=== PATIENT | female | born 1955 | race Caucasian/White ===

== ENCOUNTER → 2020-10-01 | Day surgery (SDC) | payer BC ==
[2020-09-26 15:33] LABS: BASOPHILS % 0.2 % (0.0-1.0); EOSINOPHILS # (AUTO) 0.1 (0.0-0.4); EOSINOPHILS % 0.9 % (0.0-6.0); HEMATOCRIT 38.8 % (34.2-44.1); HEMOGLOBIN 12.3 g/dL (12.0-16.0); LYMPHOCYTES # (AUTO) 3.3 (1.0-3.2); LYMPHOCYTES % 36.3 % (18.0-39.1); MEAN CORPUSCULAR HEMOGLOBIN 30.6 pg (28-32); MEAN CORPUSCULAR HGB CONC 31.7 g/dL (31-35); MEAN CORPUSCULAR VOLUME 96.5 fL (81-99); MONOCYTES # (AUTO) 0.6 (0.2-0.8); MONOCYTES % 6.5 % (4.4-11.3); NEUTROPHILS # (AUTO) 5.1 (2.1-6.9); NEUTROPHILS % 55.8 % (38.7-80.0); PLATELET COUNT 311 x10e3/uL (140-360); RED BLOOD COUNT 4.02 x10e6/uL (3.6-5.1); RED CELL DISTRIBUTION WIDTH 13.2 % (11.7-14.4)
[2020-09-26 15:43] LABS: INR 0.91; PROTHROMBIN TIME 12.4 seconds (11.9-14.5)
[2020-09-26 15:51] LABS: ALBUMIN 4.1 g/dL (3.5-5.0); ALBUMIN/GLOBULIN RATIO 1.3 (0.8-2.0); ANION GAP 15.6 mmol/L (8-16); CALCIUM 9.9 mg/dL (8.4-10.2); CHOL/HDL RATIO 4.3 (3.0-3.6); CREATININE, SERUM 1.05 mg/dL (0.57-1.11); POTASSIUM 4.6 mmol/L (3.5-5.1)
[~2020-10-01] VITALS: Ht 167.6 cm; Wt 77.6 kg
[2020-10-01] VITALS (26 sets, daily range): BP systolic 99–151; BP diastolic 49–79
[~2020-10-01] MED LIST: ASPIRIN 325 MG TAB ONE; CLOPIDOGREL BISULFATE 75 MG TAB ONE; FENTANYL CITRATE/PF 100MCG/2 ML INJ ONE; HEPARIN SOD (PORCINE) 1000 UNIT/ML 30ML ONE; HEPARIN SOD/SOD CHLORIDE 2,000 ML ONE; IOPAMIDOL 370 MG/ML 200 ML INFUS..BTL INJ ONE; LEXAPRO5 MG PO; LIDOCAINE HCL 2% LOCAL 20 ML VIAL ONE; LISINOPRIL10 MG PO; LOTEPREDNOL OP; MIDAZOLAM HCL 2 MG/2 ML VIAL ONE; NITROGLYCERIN/D5W 200 MCG/ML 250 ML ONE; RESTASIS1 EACH OP; SODIUM CHLORIDE 0.9% 1000ML 1,000 ML ONE; TIROSINT88 MCG PO; VERAPAMIL HCL 2.5 MG/ML 2 ML VIAL ONE; WELLNESS FORMULA PO; [UNRECOGNIZED DRUG - OTHER] PO
== END | disposition home or self-care (01) ==
LOC: CATH LAB 07:35
PROVIDERS: ATTEND Internal Medicine
DX: I25.118 Atherosclerotic heart disease of native coronary artery with other forms of angina pectoris (principal); R94.39 Abnormal result of other cardiovascular function study; I10 Essential (primary) hypertension; Z88.2 Allergy status to sulfonamides; Z01.812 Encounter for preprocedural laboratory examination; Z20.822 Contact with and (suspected) exposure to COVID-19; Z82.49 Family history of ischemic heart disease and other diseases of the circulatory system
CPT/HCPCS: 36415; 80053; 80061; 85025; 85610; 92928; 93458; C1725; C1753; C1769; C1874; C1887; J1644; J2001; J2250; J3010; J7030; Q9967; U0002; 92978; 99152; 99153

== ENCOUNTER 2021-02-08 17:50 | Emergency (ER) | payer BC, MEDICARE ==
[~2021-02-08] VITALS: Ht 167.6 cm; Wt 77.6 kg
[~2021-02-08 17:50] MED LIST changes: -ASPIRIN 325 MG TAB ONE; -CLOPIDOGREL BISULFATE 75 MG TAB ONE; -FENTANYL CITRATE/PF 100MCG/2 ML INJ ONE; -HEPARIN SOD (PORCINE) 1000 UNIT/ML 30ML ONE; -HEPARIN SOD/SOD CHLORIDE 2,000 ML ONE; -IOPAMIDOL 370 MG/ML 200 ML INFUS..BTL INJ ONE; -LIDOCAINE HCL 2% LOCAL 20 ML VIAL ONE; -MIDAZOLAM HCL 2 MG/2 ML VIAL ONE; -NITROGLYCERIN/D5W 200 MCG/ML 250 ML ONE; -SODIUM CHLORIDE 0.9% 1000ML 1,000 ML ONE; -VERAPAMIL HCL 2.5 MG/ML 2 ML VIAL ONE
== END 2021-02-08 18:41 | disposition home or self-care (01) ==
LOC: ER 17:57
DX: K64.4 Residual hemorrhoidal skin tags (principal); K92.1 Melena
CPT/HCPCS: 99282